=== PATIENT | female | born 1965 | race Hispanic/Latino ===

== ENCOUNTER 2019-03-04 08:44 | Emergency (ER) | payer OTHER ==
[2019-03-04 08:51] VITALS: BP 122/82
[2019-03-04] MEDS ORDERED: IBUPROFEN PO ONE (10:03)
[2019-03-04] MEDS ORDERED: CLARITIN PO ONE (10:03)
--- NOTE | 2019-03-04 10:57 | Emergency Department Report ---
Minor Respiratory - HPI Chief Complaint: Upper Respiratory Infection Stated Complaint: FEVER/HURTING ALL OVER Time Seen by Provider: 03/04/19 09:40 Duration: 1 Day Pain Location: Facial, Nose Severity: mild Minor Respiratory: Yes Rhinorrhea, Yes Able to Tolerate Fluids, Yes Cough, No Sore Throat, No Ear Pain, No Sick Contacts, No Hemoptysis, No Chest Pain, No Shortness of Breath, No Fever Other History: 53-year-old female presents to ED, complaining of fever bodyaches and stuffy nose that started yesterday. She states she took some Tylenol because she was having fever. Patient denies chest pain, shortness of breath, abdominal pain, nausea or vomiting. Patient states she thinks is a her sinuses acting up because she normally gets a sinus inflammation flareup around this time. ED Review of Systems ROS: Stated complaint: FEVER/HURTING ALL OVER Other details as noted in HPI Comment: All other systems reviewed and negative ED Past Medical Hx - Past Medical History Previous Medical History?: No - Surgical History Additional Surgical History: Hyst, foot - Social History Smoking Status: Current Every Day Smoker Substance Use Type: None - Medications Home Medications: Home Medications Medication Instructions Recorded Confirmed Last Taken Type Benzonatate [Tessalon Perles] 100 mg PO Q8HR #30 capsule 03/04/19 Unknown Rx Loratadine [Claritin] 10 mg PO DAILY #30 tablet 03/04/19 Unknown Rx Pseudoephedrine HCl [Sudafed 12 120 mg PO BID #30 tablet.er 03/04/19 Unknown Rx Hour] Minor Respiratory Exam - Exam General: Vital signs noted. No distress. Alert and acting appropriately. HEENT: Yes Moist Mucous Membranes, No Pharyngeal Erythema, No Pharyngeal Exudates, No Rhinorrhea, No Conjuctival Injection, No Frontal Tenderness, No Maxillary Tenderness Ear: Neither TM Bulge, Neither TM Erythema, Neither EAC Pain, Neither EAC Discharge Neck: Yes Supple, No Adenopathy Lungs: Yes Good Air Exchange, Yes Cough, No Wheezes, No Ronchi, No Stridor, No Labored Respirations, No Retractions, No Use of Accessory Muscles, No Other Abnormal Lung Sounds Heart: Yes Regular, No Murmur Abdomen: Yes Normal Bowel Sounds, No Tenderness, No Peritoneal Signs Skin: No Rash, No Edema Neurologic: Alert and oriented, no deficits. Musculoskeletal: Unremarkable. ED Course Vital Signs 03/04/19 03/04/19 08:50 10:29 Temperature 98.4 F Pulse Rate 98 H Respiratory 18 16 Rate Blood Pressure 122/82 O2 Sat by Pulse 100 Oximetry ED Medical Decision Making - Radiology Data Radiology results: report reviewed - Medical Decision Making 53-year-old female presents with upper respiratory infection/sinusitis X-rays obtained: No acute findings Discussed findings with the patient. Patient is in no acute distress. Patient received medicine relief in the ED Vital signs are normal, Critical care attestation.: If time is entered above; I have spent that time in minutes in the direct care of this critically ill patient, excluding procedure time. ED Disposition Clinical Impression: Upper respiratory infection, Sinusitis chronic, frontal Disposition: [id number] TO HOME OR SELFCARE Is pt being admited?: No Does the pt Need Aspirin: No Condition: Stable Instructions: Sinusitis (ED) Additional Instructions: Make sure to follow up with the primary care physician as discussed. Take all your medications as you've been prescribed. If you have any worsening symptoms or develop new symptoms please return to ED immediately. Prescriptions: Loratadine [Claritin] 10 mg PO DAILY #30 tablet Pseudoephedrine HCl [Sudafed 12 Hour] 120 mg PO BID #30 tablet.er Benzonatate [Tessalon Perles] 100 mg PO Q8HR #30 capsule Referrals: PRIMARY CARE, [Primary Care Provider] - 3-5 Days [facility] [Provider Group] - 3-5 Days Forms: Work/School Release Form(ED) Time of Disposition: 11:57
--- NOTE | 2019-03-04 11:48 | XRay Report ---
PROCEDURE: XR CHEST ROUTINE 2V TECHNIQUE: Frontal and lateral views of the chest HISTORY: cough/fever/pain COMPARISONS: None. FINDINGS: The cardiomediastinal silhouette is normal in appearance. The lungs are clear without focal consolidation. No pleural effusion or pneumothorax. No acute bony or soft tissue abnormality. IMPRESSION: No acute cardiopulmonary disease. This document is electronically signed by Mary Kate Harper MD., March 04 2019 11:46:36 AM ET
== END 2019-03-04 12:00 | disposition home or self-care (01) ==
LOC: ED 08:44
DX: J06.9 Acute upper respiratory infection, unspecified (principal); J32.1 Chronic frontal sinusitis; F17.200 Nicotine dependence, unspecified, uncomplicated; Z90.710 Acquired absence of both cervix and uterus; Z88.5 Allergy status to narcotic agent
CPT/HCPCS: 71046